=== PATIENT | female | born 1950 | race Caucasian/White ===

== ENCOUNTER → 2017-06-03 | Outpatient (REF) ==
[~2017-06-03] MED LIST: 00186-0370-20 IH; CLARITIN 1010 MG/TAB PO; LOPRESSOR 225 MG/TAB PO; PRAVACHOL 40MG40 MG PO; PROVENTIL0.09 MG/A1 IH; SINGULAIR 110 MG/TAB PO; ZESTRIL 10MG10 MG PO
== END ==
LOC: ZLAB.WCH 08:40
DX: Z01.89 Encounter for other specified special examinations (principal)

== ENCOUNTER 2023-12-01 08:37 | Day surgery (SDC) | payer MEDICARE, BC ==
[~2023-12-01] VITALS: Ht 162.6 cm; Wt 56.9 kg
[~2023-12-01 08:37] MED LIST changes: +LR 1,000 ML IV SCH
[2023-12-01] MEDS ORDERED: Scopolamine 1 MG Delivered 3-Day PATCH TD SCH (09:15)
[2023-12-01] MEDS ORDERED: CELLCEPT 5500 MG/TAB PO (09:37)
[2023-12-01] MEDS ORDERED: LOPRESSOR 550 MG/TAB PO (09:37)
[2023-12-01] MEDS ORDERED: CITRACAL + D CA1 TAB (09:38)
[2023-12-01] MEDS ORDERED: IRON TABLETS325 MG PO (09:38)
[2023-12-01] MEDS ORDERED: MULTI VITAMINS1 TAB PO (09:39)
[2023-12-01] MEDS ORDERED: RT SPIRIVA18 MCG IH (09:39)
[2023-12-01] MEDS ORDERED: LIPITOR 80MG80 MG PO (09:40)
[2023-12-01] MEDS ORDERED: MAGNESIUM ELEM300 MG PO (09:41)
[2023-12-01] MEDS ORDERED: Indocyanine Green 12.5 MG in Water For Injection,Sterile 2.5 ML IV ONE (10:00)
[2023-12-01 10:27] VITALS: BP 120/70; PULSE 58; TEMP 97.9
[2023-12-01] MEDS ORDERED: fentaNYL 50 MCG/ML 2 ML VIAL ONE ×2 (10:44→11:54)
[2023-12-01] MEDS ORDERED: Rocuronium 50 MG/5 ML Multi-Dose VIAL ONE (10:44)
[2023-12-01] MEDS ORDERED: Lidocaine PF 2% (20 MG/ML) 5 ML VIAL ONE (10:45)
[2023-12-01] MEDS ORDERED: Ketorolac 30 MG/ML VIAL ONE (10:46)
[2023-12-01] MEDS ORDERED: Ondansetron 4 MG/2 ML VIAL ONE (10:46)
[2023-12-01] MEDS ORDERED: dexAMETHasone 10 MG/ML VIAL ONE (10:46)
[2023-12-01] MEDS ORDERED: Glycopyrrolate 0.2 MG/ML 1 ML VIAL ONE (10:46)
[2023-12-01] MEDS ORDERED: NS 10 ML IV ONE (10:46)
[2023-12-01] MEDS ORDERED: fentaNYL 50 MCG/ML 1 ML SYRINGE/VIAL [PACU/SDC ONLY] IV PRN (11:15)
[2023-12-01] MEDS ORDERED: hydrALAZINE 20 MG/ML 1 ML VIAL IV PRN (11:15)
[2023-12-01] MEDS ORDERED: droPERidol 2.5 MG/ML 2 ML VIAL IV PRN (11:15)
[2023-12-01] MEDS ORDERED: Morphine 2 MG/1 ML VIAL [PACU/SDC ONLY] IV PRN (11:15)
[2023-12-01] MEDS ORDERED: Ondansetron 4 MG/2 ML VIAL IV PRN ×2 (11:15→12:15)
[2023-12-01] MEDS ORDERED: HYDROmorphone 1 MG/1 ML SYRINGE [PACU/SDC ONLY] IV PRN (11:15)
[2023-12-01] MEDS ORDERED: Topical Skin Adhesive 1 EACH (1 ML) TOP ONE (11:40)
[2023-12-01] MEDS ORDERED: Iohexol 350 - 100 ML VIAL BILE DUCT ONE (11:40)
[2023-12-01] MEDS ORDERED: fentaNYL 50 MCG/ML 5 ML VIAL ONE (11:53)
[2023-12-01] MEDS ORDERED: NORCO 325 MG-51 TAB PO (12:07)
[2023-12-01] MEDS ORDERED: Ibuprofen 600 MG TAB PO PRN (12:15)
[2023-12-01] MEDS ORDERED: Acetaminophen 325 MG TAB PO PRN (12:15)
[2023-12-01 12:40] VITALS: BP 105/53; PULSE 64; TEMP 98.2
[2023-12-01 12:55] VITALS: BP 122/48; PULSE 62
[2023-12-01 13:10] VITALS: BP 137/50; PULSE 53
--- NOTE | 2023-12-01 15:10 | NUR ---
1240: PT TO BAY 3 FROM PACU. ALERT AND ORIENTED. SITTING UP IN BED EATING ICE CHIPS. REPORT RECEIVED FROM JANEL JUNG VSS. BREATHING EVEN AND UNLABORED. 5 ABD INCISONS C/D/I CLOSED WITH SKIN GLUE. REQUESTING WATER AND MUFFIN. DENIES NAUSEA AND PAIN. NO FURTHER NEEDS NOTED. RESTING IN COT. CALL LIGHT IN REACH. SISTERJANIE, AT BEDSIDE. 1255: ALERT AND ORIENTED. VSS. BREATHING EVEN AND UNLABORED. TOLERATING MUFFIN AND WATER. DENIES NAUSEA. RATING PAIN 2/10 AND REQUESTING PAIN MEDICATION. NO FURTHER NEEDS NOTED. RESTING IN COT. CALL LIGHT IN REACH. SISTERJANIE, AT BEDSIDE. 1305: PRN NORCO GIVEN ORDERED. 1310: ALERT AND ORIENTED. VSS. BREATHING EVEN AND UNLABORED. CONTINUES TO TOLERATE MUFFIN AND WATER. DENIES NASUEA. DISCHARGE EDUCATION COMPLETED. EDUCATED PT NEXT DOSE OF NORCO DUE AT 1700. PT STATED UNDERSTANDING. DISCHARGE PAPERWORK GIVEN TO PT. IV DC'D AT THIS TIME. PT DENIES ANY ASSISTANCE DRESING. 1333: PT OFF UNIT PER WHEELCHAIR. PT DISCHARGED TO HOME WITH SISTER PER PERSONAL VEHICLE.
== END 2023-12-01 13:33 | disposition home or self-care (01) ==
LOC: SDCO 08:37
DX: K80.60 Calculus of gallbladder and bile duct with cholecystitis, unspecified, without obstruction (principal); K21.9 Gastro-esophageal reflux disease without esophagitis; Z79.899 Other long term (current) drug therapy
CPT/HCPCS: J0690; J1100; J1885; J2405; J2704; J3010; J7120; Q9967